=== PATIENT | female | born 1955 | race Caucasian/White ===

== ENCOUNTER 2021-06-22 18:30 | Emergency (ER) | payer OTHER ==
--- OUTSIDE RECORDS SUMMARY | 2021-06-22 18:33 | XMS REPORT | Continuity of Care Document ---
:1955 Author Organization [facility] t Address [address] [place] [address] [address] [place] [address] Care Team Providers Name Role Phone John PERRY Attending Clinician Problems This patient has no known problems. Allergies, Adverse Reactions, Alerts This patient has no known allergies or adverse reactions. Medications This patient has no known medications. Procedures This patient has no known procedures. Encounters Start End Encounter Admission Attending Care Care Encounter Source Date/Time Date/Time Type Type Clinicians Facility Department ID 2021-06-11 2021-06-11 Office KELTON Lopez [id number] 12:51:13 13:18:34 Visit Regine Garcia [id number] [place] [id number] Y[place] [id number] nal 059 Building Results This patient has no known results.
[2021-06-22] MEDS ORDERED: FAMOTIDINE 20 MG/2 ML VIAL IV ONE (19:46)
[2021-06-22] MEDS ORDERED: METHYLPREDNISOLONE 125 MG INJ ONE (19:46)
[2021-06-22] MEDS ORDERED: DIPHENHYDRAMINE 25 MG TAB/CAP ONE (19:46)
--- NOTE | 2021-06-22 22:43 | ER ---
Nurse's Notes [facility] Name: Jade Garnica Age: 65 yrs Sex: Female : 1955 Arrival Date: 06/22/2021 Time: 18:35 Bed Waiting Private MD: Diagnosis: Allergy to other foods Presentation: 06/22 18:53 Chief complaint: Patient states: "My tongue started swelling up about an hour and a ss half ago. I've had this problem before and I started to feel I was having a hard time breathing so I came in.". 19:11 Coronavirus screen: Client denies travel out of the [place] in the last 14 days. Ebola ss Screen: Patient denies exposure to infectious person. Patient denies travel to an Ebola-affected area in the 21 days before illness onset. Initial Sepsis Screen: Does the patient meet any 2 criteria? No. Patient's initial sepsis screen is negative. Does the patient have a suspected source of infection? No. Patient's initial sepsis screen is negative. Risk Assessment: Do you want to hurt yourself or someone else? Patient reports no desire to harm self or others. Onset of symptoms was June 22, 2021. 19:11 Method Of Arrival: Ambulatory ss 19:11 Acuity: EULALIO 2 ss Historical: - Allergies: 19:11 Doxycycline; ss 19:11 Pyridium; ss 19:11 Sulfa (Sulfonamide Antibiotics); ss - PMHx: 19:11 CAD; Diabetes - IDDM; Hypertension; Hypothyroidism; ss - Immunization history:: Client reports receiving the 1st dose of the Covid vaccine. - Social history:: Smoking status: Patient denies any tobacco usage or history of. Screenin:19 Abuse screen: Denies threats or abuse. Denies injuries from another. Nutritional ss screening: No deficits noted. Tuberculosis screening: Never had TB. Fall Risk None identified. Assessment: 19:29 Reassessment: Pt has been medicated as ordered and seated back out in lobby and ss verbalizes understanding to return to triage if her symptoms worsen at all. 22:45 Reassessment: Patient appears in no apparent distress at this time. Patient and/or em family updated on plan of care and expected duration. Pain level reassessed. Patient is alert, oriented x 3, equal unlabored respirations, skin warm/dry/pink. Patient states feeling better. Patient states symptoms have improved. General: Appears in no apparent distress. comfortable, Behavior is calm, appropriate for age. Pain: Denies pain. Neuro: Level of Consciousness is awake, alert, obeys commands, Oriented to person, place, time, situation. Cardiovascular: Capillary refill < 3 seconds Patient's skin is warm and dry. Respiratory: Airway is patent Respiratory effort is even, unlabored, Respiratory pattern is regular, symmetrical. Derm: Skin is intact, is healthy with good turgor, Skin is pink, warm \\T\\ dry. Vital Signs: 19:11 Pulse 79; Resp 18; Temp 98.1(TE); Pulse Ox 93% on R/A; Weight 112.49 kg; Height 5 ft. 6 ss in. (167.64 cm); 19:12 BP 137 / 74; ss 19:11 Body Mass Index 40.03 (112.49 kg, 167.64 cm) ED Course: 18:35 Patient arrived in ED. mr 18:56 Miguel A Westbrook PA is PHCP. cp 18:56 Bertin Chavez MD is Attending Physician. cp 19:11 Triage completed. ss 19:11 Arm band placed on right wrist. ss 19:19 Patient has correct armband on for positive identification. ss 19:19 Inserted saline lock: 22 gauge in right antecubital area, using aseptic technique. ss Blood collected. 22:44 Chago Parsons, RN is Primary Nurse. em 22:44 No provider procedures requiring assistance completed. IV discontinued, intact, em bleeding controlled, No redness/swelling at site. Pressure dressing applied. Administered Medications: 19:28 Drug: Benadryl (diphenhydrAMINE) 50 mg Route: PO; ss 19:28 Drug: SOLU-Medrol (methylPrednisoLONE) 125 mg Route: IVP; Site: right antecubital; ss 19:28 Not Given (Physician Discretion): Pepcid (famotidine) 20 mg PO once ss 19:29 Drug: Pepcid (famotidine) 20 mg Route: IVP; Site: right antecubital; ss Outcome: 22:42 Discharge ordered by . cp 22:44 Discharged to home ambulatory. em 22:44 Condition: stable 22:44 Discharge instructions given to patient, Instructed on discharge instructions, follow up and referral plans. medication usage, Demonstrated understanding of instructions, follow-up care, medications, Prescriptions given X 3. 22:47 Patient left the ED. em Signatures: Marion Montiel Edgar RN RN em Eileen Mosqueda RN RN ss Miguel A Westbrook, OVI PA cp
--- NOTE | 2021-06-22 22:43 | EDPHYS ---
Physician Documentation [facility] Name: Jade Garnica Age: 65 yrs Sex: Female : 1955 Arrival Date: 06/22/2021 Time: 18:35 Bed Waiting Private MD: ED Physician Bertin Chavez HPI: 06/22 18:57 This 65 yrs old Female presents to ER via Unassigned with complaints of cp Swelling Of Tongue. 18:57 Onset: The symptoms/episode began/occurred suddenly, 1.5 hour(s) ago. cp 18:57 Associated signs and symptoms: Pertinent positives: shortness of breath. cp 18:57 Associated signs and symptoms: Pertinent positives: shortness of breath, tongue cp swelling. 18:57 Possible causes: patient reports eating granola bar that contained nuts. At home the cp patient or guardian has treated the symptoms with nothing. Severity of symptoms: in the emergency department the symptoms are unchanged. Historical: - Allergies: 19:11 Doxycycline; ss 19:11 Pyridium; ss 19:11 Sulfa (Sulfonamide Antibiotics); ss - PMHx: 19:11 CAD; Diabetes - IDDM; Hypertension; Hypothyroidism; ss - Immunization history:: Client reports receiving the 1st dose of the Covid vaccine. - Social history:: Smoking status: Patient denies any tobacco usage or history of. ROS: 19:00 Constitutional: Negative for body aches, chills, fever, poor PO intake. cp 19:00 Eyes: Negative for injury, pain, redness, and discharge. cp 19:00 Cardiovascular: Negative for chest pain, edema, palpitations. 19:00 Respiratory: Positive for shortness of breath, Negative for cough, wheezing. 19:00 Abdomen/GI: Negative for abdominal pain, nausea, vomiting, and diarrhea. 19:00 Skin: Negative for rash. cp 19:00 Neuro: Negative for altered mental status, headache, syncope, weakness. 19:00 All other systems are negative. Exam: 19:05 Constitutional: The patient appears in no acute distress, alert, awake, cp non-diaphoretic, non-toxic, well developed, well nourished, obese. 19:05 Head/Face: Normocephalic, atraumatic. cp 19:05 Eyes: Periorbital structures: appear normal, Conjunctiva: normal, no exudate, no injection, Sclera: no appreciated abnormality, Lids and lashes: appear normal, bilaterally. 19:05 ENT: External ear(s): are unremarkable, Nose: is normal, Mouth: Lips: moist, Oral mucosa: pink and intact, moist, Tongue: no gross swelling/edema noted, Posterior pharynx: Airway: no evidence of obstruction, patent, swelling, is not appreciated, erythema, is not appreciated, exudate, is not appreciated. 19:05 Neck: ROM/movement: is normal, is supple, without pain, no range of motions limitations, no nuchal rigidity, Lymph nodes: no appreciated lymphadenopathy. 19:05 Chest/axilla: Inspection: normal, Palpation: is normal, no crepitus, no tenderness. 19:05 Cardiovascular: Rate: normal, Rhythm: regular. 19:05 Respiratory: the patient does not display signs of respiratory distress, Respirations: normal, no use of accessory muscles, no retractions, labored breathing, is not present, Breath sounds: are clear throughout, no decreased breath sounds, no stridor, no wheezing. 19:05 Abdomen/GI: Exam negative for discomfort, distension, guarding, Inspection: abdomen appears normal. 19:05 Skin: no rash present. 19:05 Neuro: Orientation: to person, place \T\ time. Mentation: is normal, Motor: moves all fours, strength is normal, Sensation: is normal, Gait: is steady, at a normal pace, without difficulty. Vital Signs: 19:11 Pulse 79; Resp 18; Temp 98.1(TE); Pulse Ox 93% on R/A; Weight 112.49 kg; Height 5 ft. 6 ss in. (167.64 cm); 19:12 BP 137 / 74; ss 19:11 Body Mass Index 40.03 (112.49 kg, 167.64 cm) ss MDM: 22:00 Differential diagnosis: anaphylaxis, angioedema, urticaria. cp 22:40 Data reviewed: vital signs, nurses notes, lab test result(s). ED course: VSS. Patient cp reports symptoms resolved and requesting discharge to home. 22:42 Patient medically screened. cp 22:42 Counseling: I had a detailed discussion with the patient and/or guardian regarding: the cp historical points, exam findings, and any diagnostic results supporting the discharge/admit diagnosis, to return to the emergency department if symptoms worsen or persist or if there are any questions or concerns that arise at home. 22:42 Response to treatment: the patient's symptoms have markedly improved after treatment, cp and as a result, I will discharge patient. 06/22 19:31 Order name: Glucose, Ancillary Testing EDOK 06/22 18:57 Order name: IV; Complete Time: 19:20 cp 06/22 18:57 Order name: Accucheck Blood Glucose; Complete Time: 19:20 cp Administered Medications: 19:28 Drug: Benadryl (diphenhydrAMINE) 50 mg Route: PO; ss 19:28 Drug: SOLU-Medrol (methylPrednisoLONE) 125 mg Route: IVP; Site: right antecubital; ss 19:28 Not Given (Physician Discretion): Pepcid (famotidine) 20 mg PO once ss 19:29 Drug: Pepcid (famotidine) 20 mg Route: IVP; Site: right antecubital; ss Disposition Summary: 06/22/21 22:42 Discharge Ordered Location: Home cp Problem: new cp Symptoms: have improved cp Condition: Stable cp Diagnosis - Allergy to other foods cp Followup: cp - With: Emergency Department - When: As needed - Reason: Worsening of condition Discharge Instructions: - Discharge Summary Sheet cp - Food Allergy cp - Angioedema cp Forms: - Medication Reconciliation Form cp - Thank You Letter cp - Antibiotic Education cp - Prescription Opioid Use cp Prescriptions: - EpiPen - apply 1 Syringe by INTRAMUSCULAR route as directed As needed inject as needed cp for allergic reaction; 2 Syringe; Refills: 0, Product Selection Permitted - Pepcid 20 mg Oral Tablet - take 1 tablet by ORAL route every 12 hours for 5 days; 10 tablet; Refills: 0, cp Product Selection Permitted - Prednisone 20 mg Oral Tablet - take 2 tablets by ORAL route once daily for 5 days; 10 tablet; Refills: 0, cp Product Selection Permitted Addendum: 06/25/2021 07:13 Co-signature as Attending Physician, Bertin Chavez MD I agree with the assessment and k dr plan of care. Signatures: Dispatcher [employer] [facility] Bertin Chavez MD MD [facility] Eileen Mosqueda RN RN ss Miguel A Westbrook PA PA cp Corrections: (The following items were deleted from the chart) 06/23 17:51 06/22 18:57 Onset: The symptoms/episode began/occurred suddenly, just prior to arrival, cp cp
[2021-06-22 23:49] VITALS: TEMP 98.1; O2SAT 93
[2021-06-22 23:51] VITALS: BP 137/74
== END 2021-06-22 22:47 | disposition home or self-care (01) ==
LOC: ER 18:30
DX: R22.9 Localized swelling, mass and lump, unspecified (principal); Z91.018 Allergy to other foods; I10 Essential (primary) hypertension; Z88.1 Allergy status to other antibiotic agents; Z88.2 Allergy status to sulfonamides; Z88.8 Allergy status to other drugs, medicaments and biological substances
CPT/HCPCS: 82947; 96375; 96374; 99284; J2930